=== PATIENT | male | born 1945 | race Caucasian/White ===

== ENCOUNTER 2016-12-09 13:34 | Emergency (ER) | payer MEDICARE, BC ==
[2016-12-09] MEDS ORDERED: SODIUM CHLORIDE 0.9% 1000ML 1,000 ML IV ONE (13:41)
[2016-12-09 13:57] LABS: BASOPHILS % (AUTO) 0 % (0-3); EOSINOPHILS % (AUTO) 0 % (0-9); HEMATOCRIT 40 % (39-53); MEAN CORPUSCULAR HGB CONC 34.1 gm/dl (32.0-36.0); MONOCYTES % (AUTO) 7.1 % (0-12); NEUTROPHILS % (AUTO) 62.9 % (37-80)
[2016-12-09 14:00] LABS: MEAN CORPUSCULAR VOLUME 80 fL (80-100)
[2016-12-09 14:07] VITALS: TEMP 97.3
[2016-12-09 14:13] LABS: ALBUMIN 3.6 gm/dl (3.4-5.0); ALT 16 IU/L (14-63); CALCIUM 8.7 mg/dl (8.5-10.1); GLOM FILT RATE 69 mL/min (>60); MAGNESIUM 2.1 mg/dl (1.8-2.4); POTASSIUM 3.9 mMol/L (3.5-5.1); SODIUM 139 mMol/L (136-145)
[2016-12-09 15:59] VITALS: O2SAT 98
[2016-12-09 16:00] VITALS: BP 128/94; PULSE 63; RESP 17
== END 2016-12-09 15:10 | disposition home or self-care (01) | DRG 310 ==
LOC: ED 13:34
DX: I49.3 Ventricular premature depolarization (principal); R51 Headache
CPT/HCPCS: 71010; 80053; 83735; 84484; 85025; 93005; 96365; 99282; 99284

== ENCOUNTER 2018-08-24 03:28 | Emergency (ER) | payer BC, MEDICARE ==
[2018-08-24] MEDS ORDERED: ONDANSETRON HCL 4 MG/2 ML SOL IV ONE ×3 (03:32→09:44)
[2018-08-24] MEDS ORDERED: SODIUM CHLORIDE 0.9% 1000ML 1,000 ML IV ONE ×3 (03:32→04:37)
[2018-08-24] MEDS ORDERED: TAMSULOSIN HYDROCHLORIDE 0.4 MG CAP PO ONE (03:35)
[2018-08-24] MEDS: SODIUM CHLORIDE 0.9% FLUSH 10 ML SOL IV PRN ×3 (03:40→09:41)
[2018-08-24] MEDS ORDERED: HYDROMORPHONE 1 MG/ML SYRINGE ONE ×2 (03:40→09:37)
[2018-08-24] MEDS ORDERED: ONDANSETRON HCL 4 MG/2 ML SOL ONE ×2 (03:40→08:16)
[2018-08-24] MEDS: HYDROMORPHONE 1 MG/ML SYRINGE IV PRN ×2 (03:43→09:39)
[2018-08-24] MEDS ORDERED: TAMSULOSIN HYDROCHLORIDE 0.4 MG CAP ONE (03:50)
[2018-08-24 03:52] LABS: BASOPHILS % (AUTO) 0 % (0-3); EOSINOPHILS % (AUTO) 0 % (0-9); HEMATOCRIT 40 % (39-53); HEMOGLOBIN 12.6 gm/dl (13.5-17.7); LYMPHOCYTES % (AUTO) 14.9 % (10-50); MEAN CORPUSCULAR HGB CONC 31.3 gm/dl (32.0-36.0); MONOCYTES % (AUTO) 4.1 % (0-12); NEUTROPHILS % (AUTO) 80.6 % (37-80)
[2018-08-24 03:54] LABS: MEAN CORPUSCULAR VOLUME 74 fL (80-100)
[2018-08-24] MEDS ORDERED: FENTANYL 100MCG/2ML SOL IV ONE ×4 (03:54→08:48)
[2018-08-24 03:58] LABS: LACTIC ACID 3.2 mMol/L (0.0-2.0)
[2018-08-24] MEDS ORDERED: FENTANYL 100MCG/2ML SOL ONE ×4 (03:59→08:50)
[2018-08-24 04:06] LABS: ANISOCYTOSIS SLIGHT AMT; POIKILOCYTOSIS SLIGHT AMT; SPHEROCYTES PRESENT
[2018-08-24 04:09] LABS: ALBUMIN 4.1 gm/dl (3.4-5.0); ALKALINE PHOSPHATASE 95 IU/L (46-116); ALT 20 IU/L (14-63); AST 14 IU/L (15-37); BILIRUBIN,TOTAL 0.5 mg/dl (0.2-1.0); BLOOD UREA NITROGEN 21 mg/dl (7-18); CARBON DIOXIDE 18.8 mEq/L (21-32); CHLORIDE 105 mMol/L (98-107); CREATININE 1.45 mg/dl (0.80-1.30); GLUCOSE 195 mg/dl (74-106); POTASSIUM 3.8 mMol/L (3.5-5.1); SODIUM 140 mMol/L (136-145); TOTAL PROTEIN 7.7 gm/dl (6.4-8.2); TROP I < 0.017 ng/ml (0.000-0.056)
[2018-08-24 04:56] VITALS: TEMP 96.3
[2018-08-24 05:14] LABS: APPEARANCE,URINE Clear; BILIRUBIN,URINE NEGATIVE (NEGATIVE); COLOR,URINE Yellow; GLUCOSE, URINE (UA) NEGATIVE (NEGATIVE); KETONES,URINE 2+ (NEGATIVE); LEUKOCYTE ESTERASE ,URINE TRACE (NEGATIVE); NITRATE,URINE POSITIVE (NEGATIVE); OCCULT BLOOD,URINE 2+ (NEG-TRACE); PH,URINE 5.5; UROBILINOGEN,URINE 0.2 (0.2-1.0 EU)
[2018-08-24 05:20] LABS: BACTERIA 2+ (< 1+); CRYSTALS NEGATIVE (0-3 AVE/HPF); WBC,URINE 15-20 (0-5AV/HPF)
[2018-08-24] MEDS ORDERED: CEFTRIAXONE 1 GM PDS 1 GM in SODIUM CHLORIDE 0.9% 50 ML 50 ML IV ONE (07:02)
[2018-08-24] MEDS ORDERED: CEFTRIAXONE 1 GM PDS ONE (07:26)
[2018-08-24 08:19] VITALS: RESP 18
[2018-08-24 10:18] VITALS: BP 136/70; PULSE 94; O2SAT 94
[2018-08-24] MEDS ORDERED: PROCHLORPERAZINE EDISYLATE 5 MG/ML SOL IV ONE (10:20)
[2018-08-24] MEDS ORDERED: PROCHLORPERAZINE EDISYLATE 5 MG/ML SOL ONE (10:26)
== END 2018-08-24 10:30 | disposition short-term general hospital (02) | DRG 694 ==
LOC: ED 03:28
DX: N20.0 Calculus of kidney (principal); N13.2 Hydronephrosis with renal and ureteral calculous obstruction; R11.2 Nausea with vomiting, unspecified
CPT/HCPCS: 74176; 80053; 81001; 84484; 85025; 87077; 87088; 87186; 96365; 96366; 96374; 96375; 99284; 99285; J0696; J0780; J2405; J3010; A9270-GY; J1170

== ENCOUNTER 2018-08-31 11:44 | Emergency (ER) | payer BC ==
[2018-08-31] MEDS ORDERED: HYDROMORPHONE 1 MG/ML SYRINGE IM ONE (12:11)
[2018-08-31] MEDS ORDERED: HYDROMORPHONE 1 MG/ML SYRINGE ONE (12:13)
[2018-08-31 12:23] LABS: BASOPHILS % (AUTO) 0 % (0-3); EOSINOPHILS % (AUTO) 1 % (0-9); HEMATOCRIT 39 % (39-53); HEMOGLOBIN 12.4 gm/dl (13.5-17.7); LYMPHOCYTES % (AUTO) 17.8 % (10-50); MEAN CORPUSCULAR HEMOGLOBIN 23.7 pg (27.0-32.0); MONOCYTES % (AUTO) 7.6 % (0-12); NEUTROPHILS % (AUTO) 73.1 % (37-80)
[2018-08-31 12:32] LABS: CARBON DIOXIDE 25.1 mEq/L (21-32); CREATININE 1.18 mg/dl (0.80-1.30); POTASSIUM 4.4 mMol/L (3.5-5.1)
[2018-08-31 12:33] LABS: MEAN CORPUSCULAR VOLUME 74 fL (80-100)
[2018-08-31 12:40] LABS: ANISOCYTOSIS SLIGHT AMT; OVALOCYTES PRESENT; POIKILOCYTOSIS SLIGHT AMT
[2018-08-31 12:43] VITALS: RESP 18; TEMP 97.2
[2018-08-31 12:57] VITALS: BP 115/71; PULSE 57; O2SAT 97
== END 2018-08-31 13:11 | disposition home or self-care (01) | DRG 694 ==
LOC: ED 11:44
DX: N20.0 Calculus of kidney (principal)
CPT/HCPCS: 36415; 80048; 85025; 96372; 99282; 99283; J1170